=== PATIENT | female | born 1940 | race Caucasian/White ===

== ENCOUNTER → 2023-05-22 13:45 | Outpatient (REF) | payer MEDICARE, OTHER, SELFPAY | LOC: DHCBS MAIN 13:45 | PROVIDERS: ATTENDING PHYSICIAN Internal Medicine Cardiovascular Disease; FAMILY PHYSICIAN Internal Medicine Geriatric Medicine | DX: G45.9 Transient cerebral ischemic attack, unspecified (principal) | CPT/HCPCS: 93306 ==

== ENCOUNTER → 2023-08-18 12:43 | Outpatient (REF) | payer MEDICARE, OTHER, SELFPAY | LOC: WDC 12:43 | PROVIDERS: ATTENDING PHYSICIAN Obstetrics & Gynecology; FAMILY PHYSICIAN Internal Medicine Geriatric Medicine | DX: Z12.31 Encounter for screening mammogram for malignant neoplasm of breast (principal); Z78.0 Asymptomatic menopausal state | CPT/HCPCS: 77063; 77067; 77080 ==

== ENCOUNTER → 2023-10-16 12:12 | Outpatient (REF) | payer MEDICARE, OTHER, SELFPAY ==
[2023-10-16 12:47] LABS: % Basophils 1.1 % (0-2); % Eosinophils 4.6 % (0-6); % Immature Granulocytes 0.2 % (0-0.5); % Lymphocytes 25.2 % (20.5-51.1); % Monocytes 7.6 % (1.7-9.3); % Neutrophils 61.3 % (42.2-75.2); Absolute Basophils 0.1 10^3/uL (0-0.2); Absolute Eosinophils 0.2 10^3/uL (0-0.7); Absolute Lymphocytes 1.2 10^3/uL (1.2-3.4); Absolute Monocytes 0.4 10^3/uL (0.1-0.6); Absolute Neutrophils 2.9 10^3/uL (1.4-6.5); Hematocrit 37.8 % (37.0-47.0); Hemoglobin 12.5 g/dL (12.0-16.0); Mean Corp Hgb Conc. 33.1 g/dL (33.0-37.0); Mean Corpuscular Hgb 30.7 pg (27.0-31.0); Mean Corpuscular Volume 92.9 fL (81.0-99.0); Mean Platelet Volume 11.5 fL (7.4-10.4); Nucleated Red Blood Cells % 0 %; Platelet Count 158 10^3/uL (130-400); Red Blood Cell Count 4.07 10^6/uL (4.20-5.40); White Blood Cell Count 4.8 10^3/uL (4.8-10.8)
[2023-10-16 13:00] LABS: Urine Albumin 1+ (Neg - Trace); Urine Bilirubin Negative (Negative); Urine Character Slightly Cloudy (Clear); Urine Color Yellow; Urine Glucose Negative (Negative); Urine Ketone Negative (Negative); Urine Leukocyte 2+ (Negative); Urine Nitrite Negative (Negative); Urine Occult Blood Negative (Negative); Urine Urobilinogen Negative (Neg - 1+)
[2023-10-16 13:17] LABS: ALT (SGPT) 24 U/L (0-35); AST (SGOT) 38 U/L (14-36); Alkaline Phosphatase 81 U/L (38-126); Blood Urea Nitrogen 18 mg/dl (7-17); Calcium 9.8 mg/dl (8.4-10.2); Carbon Dioxide 27 mmol/L (22-30); Chloride 106 mmol/L (98-107); Glucose 91 mg/dl (70-99); HDL Cholesterol 54 mg/dl; LDL Cholesterol, Calculated 60 mg/dl; Potassium 4.6 mmol/L (3.5-5.1); Sodium 140 mmol/L (135-145); Total Cholesterol 155 mg/dl (50-199); Total Protein 6.4 g/dl (6.3-8.2); Triglyceride 209 mg/dl (10-149); Very Low Density Lipoprotein 41 mg/dl (0-30); eGFR 55.55
[2023-10-16 13:32] LABS: Vitamin D, 25-OH*** 65.8 ng/mL (30-80)
[2023-10-16 13:45] LABS: TSH 4.28 uIU/ml (0.47-4.68)
[2023-10-16 14:04] LABS: Glycohemoglobin (HgbA1c) 5.6 % (4.0-5.6)
[2023-10-16 15:10] LABS: Urine Bacteria Many (Negative); Urine Red Blood Cell 0-2 /HPF (0-2); Urine Squamous Cell >30 /LPF (Few); Urine Urothelial Cell 0-2 /LPF (FEW)
== END ==
LOC: REG 12:12
PROVIDERS: ATTENDING PHYSICIAN Internal Medicine Geriatric Medicine
DX: I10 Essential (primary) hypertension (principal); E03.9 Hypothyroidism, unspecified; E78.2 Mixed hyperlipidemia; I25.10 Atherosclerotic heart disease of native coronary artery without angina pectoris; R53.83 Other fatigue; J44.9 Chronic obstructive pulmonary disease, unspecified; K21.9 Gastro-esophageal reflux disease without esophagitis; I35.1 Nonrheumatic aortic (valve) insufficiency; I48.0 Paroxysmal atrial fibrillation; Z13.31 Encounter for screening for depression; E89.0 Postprocedural hypothyroidism; G45.9 Transient cerebral ischemic attack, unspecified; F03.A0 Unspecified dementia, mild, without behavioral disturbance, psychotic disturbance, mood disturbance, and anxiety; R60.9 Edema, unspecified; M54.50 Low back pain, unspecified; R73.03 Prediabetes; E55.9 Vitamin D deficiency, unspecified
CPT/HCPCS: 36415; 80053; 80061; 81003; 81015; 82306; 83036; 84439; 84443; 85025

== ENCOUNTER → 2024-01-18 15:24 | Outpatient (REF) | payer MEDICARE, OTHER, SELFPAY ==
[2024-01-18 16:25] LABS: % Basophils 0.7 % (0-2); % Eosinophils 2.5 % (0-6); % Immature Granulocytes 0.1 % (0-0.5); % Lymphocytes 29.4 % (20.5-51.1); % Monocytes 6.5 % (1.7-9.3); % Neutrophils 60.8 % (42.2-75.2); Absolute Basophils 0.1 10^3/uL (0-0.2); Absolute Eosinophils 0.2 10^3/uL (0-0.7); Absolute Lymphocytes 2.1 10^3/uL (1.2-3.4); Absolute Monocytes 0.5 10^3/uL (0.1-0.6); Absolute Neutrophils 4.3 10^3/uL (1.4-6.5); Hematocrit 40.5 % (37.0-47.0); Mean Corp Hgb Conc. 34.6 g/dL (33.0-37.0); Mean Corpuscular Hgb 31.6 pg (27.0-31.0); Mean Corpuscular Volume 91.4 fL (81.0-99.0); Mean Platelet Volume 12.5 fL (7.4-10.4); Nucleated Red Blood Cells % 0 %; Platelet Count 102 10^3/uL (130-400); Red Blood Cell Count 4.43 10^6/uL (4.20-5.40); Red Cell Dist. Width 13.1 % (11.5-14.5); White Blood Cell Count 7.1 10^3/uL (4.8-10.8)
[2024-01-18 16:30] LABS: Erythrocyte Sed Rate 21 mm/hour (0-20)
[2024-01-18 16:47] LABS: ALT (SGPT) 38 U/L (0-35); AST (SGOT) 43 U/L (14-36); Albumin 4.4 g/dl (3.5-5.0); Alkaline Phosphatase 83 U/L (38-126); Blood Urea Nitrogen 22 mg/dl (7-17); Calcium 10.5 mg/dl (8.4-10.2); Carbon Dioxide 27 mmol/L (22-30); Chloride 102 mmol/L (98-107); Glucose 87 mg/dl (70-99); Potassium 4.9 mmol/L (3.5-5.1); Sodium 144 mmol/L (135-145); Total Bilirubin 0.9 mg/dl (0.2-1.3); Total Protein 6.8 g/dl (6.3-8.2); eGFR 55.55
[2024-01-18 16:51] LABS: C-Reactive Protein < 5.00 mg/L (0.0-10.00)
[2024-01-18 16:57] LABS: Intact PTH 82.4 pg/ml (13.6-85.8)
[2024-01-18 17:08] LABS: Free T4 1.83 ng/dl (0.78-2.19)
[2024-01-18 17:22] LABS: TSH 4.88 uIU/ml (0.47-4.68)
[2024-01-18 17:41] LABS: Vitamin B12 956 pg/ml (239-931)
[2024-01-21 03:14] LABS: ANA, IgG Reflex to HEp-2 Detected (None Detected)
== END ==
LOC: RAD 15:24
PROVIDERS: ATTENDING PHYSICIAN Nurse Practitioner Primary Care; FAMILY PHYSICIAN Internal Medicine Geriatric Medicine
DX: G44.89 Other headache syndrome (principal); Z86.73 Personal history of transient ischemic attack (TIA), and cerebral infarction without residual deficits; I10 Essential (primary) hypertension; F03.B18 Unspecified dementia, moderate, with other behavioral disturbance
CPT/HCPCS: 36415; 70450; 80053; 82607; 83970; 84439; 84443; 85025; 85652; 86038; 86140; 86430; 86618

== ENCOUNTER → 2024-02-13 15:44 | Outpatient (REF) | payer MEDICARE, OTHER, SELFPAY | LOC: PAVMRI 15:44 | PROVIDERS: ATTENDING PHYSICIAN Nurse Practitioner Primary Care; FAMILY PHYSICIAN Internal Medicine Geriatric Medicine | DX: M51.16 Intervertebral disc disorders with radiculopathy, lumbar region (principal) | CPT/HCPCS: 72148 ==

== ENCOUNTER → 2024-03-13 09:40 | Outpatient (REF) | payer MEDICARE, OTHER, SELFPAY ==
[2024-03-13 12:14] LABS: Free T4 1.66 ng/dl (0.78-2.19)
[2024-03-13 12:28] LABS: TSH 0.12 uIU/ml (0.47-4.68); TSH Reflex To Free T4 0.12 uIU/ml (0.47-4.68)
== END ==
LOC: REG 09:40
PROVIDERS: ATTENDING PHYSICIAN Internal Medicine Geriatric Medicine
DX: E03.9 Hypothyroidism, unspecified (principal)
CPT/HCPCS: 36415; 84439; 84443

== ENCOUNTER → 2024-04-05 13:26 | Outpatient (REF) | payer MEDICARE, OTHER, SELFPAY | LOC: PAVMRI 13:26 | PROVIDERS: ATTENDING PHYSICIAN Nurse Practitioner Primary Care; FAMILY PHYSICIAN Internal Medicine Geriatric Medicine | DX: K86.2 Cyst of pancreas (principal) | CPT/HCPCS: 74183; A9575 ==

== ENCOUNTER 2024-04-30 15:40 | Emergency (ER) | payer MEDICARE, OTHER, SELFPAY ==
[2024-04-30 15:50] VITALS: BP 209/109
[2024-04-30 16:14] LABS: % Basophils 0.2 % (0-2); % Eosinophils 0.5 % (0-6); % Immature Granulocytes 0.2 % (0-0.5); % Lymphocytes 20.8 % (20.5-51.1); % Monocytes 7.9 % (1.7-9.3); % Neutrophils 70.4 % (42.2-75.2); Absolute Eosinophils 0.1 10^3/uL (0-0.7); Absolute Lymphocytes 1.9 10^3/uL (1.2-3.4); Absolute Monocytes 0.7 10^3/uL (0.1-0.6); Absolute Neutrophils 6.5 10^3/uL (1.4-6.5); Hematocrit 38.2 % (37.0-47.0); Hemoglobin 13.3 g/dL (12.0-16.0); Mean Corp Hgb Conc. 34.8 g/dL (33.0-37.0); Mean Corpuscular Hgb 31.1 pg (27.0-31.0); Mean Corpuscular Volume 89.5 fL (81.0-99.0); Mean Platelet Volume 11.7 fL (7.4-10.4); Nucleated Red Blood Cells % 0 %; Platelet Count 223 10^3/uL (130-400); Red Blood Cell Count 4.27 10^6/uL (4.20-5.40); Red Cell Dist. Width 13.6 % (11.5-14.5); White Blood Cell Count 9.3 10^3/uL (4.8-10.8)
[2024-04-30 16:32] LABS: ALT (SGPT) 26 U/L (0-35); AST (SGOT) 38 U/L (14-36); Albumin 4.7 g/dl (3.5-5.0); Alkaline Phosphatase 70 U/L (38-126); Blood Urea Nitrogen 24 mg/dl (7-17); Calcium 10.5 mg/dl (8.4-10.2); Carbon Dioxide 22 mmol/L (22-30); Chloride 106 mmol/L (98-107); Glucose 102 mg/dl (70-99); Potassium 3.9 mmol/L (3.5-5.1); Sodium 142 mmol/L (135-145); Total Bilirubin 1.2 mg/dl (0.2-1.3); Total Protein 7.2 g/dl (6.3-8.2); eGFR > 60.00
--- NOTE | 2024-04-30 19:28 | ED.GENMED ---
History of Present Illness
General
Chief Complaint: Facial Problem
Source: patient and family
Exam Limitations: none
Time Seen by Provider: 04/30/24 19:22
Nursing documentation reviewed up to this point in time: agreed with
History of Present Illness
History of Present Illness:
83-year-old female right-sided facial pain her support in her partial plate, no fevers no nausea no vomiting, does radiate up into her ear and her head on the right side apparently was seen at [place] recently for an unrelated shortness of breath
issue, details are not clear, does have a dentist, has not seen them recently,
Past History
Past History
ED Past Medical History: HTN, Hypercholesterolemia, Hypothyroidism and Other (Brain aneurysm, arthritis,Facial shingles)
ED Past Surgical History: Gynecological, Orthopedic and Other (brain surgery for aneurysm)
Social History
Tobacco: Non-smoker
Alcohol: Occasional
Drug: None
Personal:
Living: alone
Employment: Retired
Family History
Family History: Other
Review of Systems
Review of Systems
All Other Systems: Not applicable
Constitutional: Denies fever or fatigue
EENT: Reports other (Dental pain facial swelling can put her partial plate in)
Phy Exam
Physical Exam
Physical Exam:
Physical Exam
General: 83-year-old female looks uncomfortable
Neck: Overall poor dentition, swelling of the soft tissue around the right posterior molar no palpable abscess no trismus
Heart: s1/s2 regular rate and rhythm, no murmur. equal radial pulses.
Lungs: no acute respiratory distress. clear bilaterally
Neuro: alert and oriented. no focal neurological deficits
Skin: no rash
Psychiatric: cooperative
Extremities: no edema.
Course
Orders/Labs/Results
Orders:
Orders
04/30/24 15:56
CT Facial Bones W/ Iv Contrast Urgent
Comment:
Reason For Exam: pain
04/30/24 16:02
CMP [Comprehensive Metabolic Panel] Urgent
Complete Blood Count/With Diff Urgent
04/30/24 19:26
Oxycodone/Acetaminophen [Percocet 5/325] 1 tablet PO NOW STA
Penicillin V Potassium [Pen Vk] 500 mg PO NOW STA
04/30/24 20:00
Chlorhexidine Oral Rinse 0.12% [Peridex 0.12% Oral Rinse] 15 ml PO ONCE ONE
Abnormal Lab Results
04/30/24
16:02
MCH 31.1 H pg
(27.0-31.0)
MPV 11.7 H fL
(7.4-10.4)
Absolute Monos (auto) 0.7 H 10^3/uL
(0.1-0.6)
BUN 24 H mg/dl
(7-17)
Glucose 102 H mg/dl
(70-99)
Calcium 10.5 H mg/dl
(8.4-10.2)
AST 38 H U/L
(14-36)
04/30/24 16:02
04/30/24 16:02
Vital Signs
Initial and Last Documented VS:
Initial Vital Signs
Temp Pulse Resp BP Pulse Ox
97.8 F 88 18 209/109 98
04/30/24 15:50 04/30/24 15:50 04/30/24 15:50 04/30/24 15:50 04/30/24 15:50
Last Documented Vital Signs
Temp Pulse Resp BP Pulse Ox
97.8 F 88 18 209/109 98
04/30/24 15:50 04/30/24 15:50 04/30/24 15:50 04/30/24 15:50 04/30/24 15:50
MDM/Problems Addressed
Differential Diagnosis Includes:
Dental infection, caries, periodontal disease, no signs of deep space infection by history physical and imaging normal white count trigeminal neuralgia
MDM/Problems Addressed:
Face and dental pain
Chronic conditions affecting care: HTN
Acute Exacerbation and/or Progression of Chronic Illness: HTN
*Radiology
Radiology exam reviewed: radiology read reviewed
*Pulse Oximetry
Patient hypoxic: no
*Critical Care Note
Total Time (30-74mins, 75-104mins- exclusive of procedures): Not Applicable
Update Note
Update Note:
Update suspect combination of periodontal disease, and dental caries, will try Peridex antibiotics analgesics states it hurts to put in her partial plate I have encouraged her to follow-up with her dentist
Update patient appears comfortable labs and CT reviewed with patient encouraged her to call her dentist in the morning
ED Attending Note
-
Portions of this chart may have been created with voice recognition software.� Occasional wrong word or��sound alike� substitutions may have occurred due to the inherent limitations of voice recognition software.
Discharge Plan
Departure
Patient Disposition: Home (Routine Discharge)
Date of Disposition: 04/30/24
Time of Disposition: 20:52
Patient with high blood pressure during this ER visit?: Yes
Condition: Good
Discharge Problem:
Pain, dental
Instructions: Toothache
Prescriptions:
New
penicillin V potassium 500 mg tablet
500 mg PO Q6H 10 Days Qty: 40 0RF
oxycodone-acetaminophen [Percocet] 5-325 mg tablet
1 tab PO Q6HPRN PRN (Reason: pain) Qty: 10 0RF
No Action
levothyroxine 75 mcg Tablet
75 mcg PO DAILY
metoprolol succinate 50 mg Tablet Extended Release 24 Hr
50 mg PO DAILY
multivitamin Tablet
1 tab PO DAILY
cyanocobalamin (vitamin B-12) [Vitamin B-12] 1,000 mcg Tablet
1,000 mcg PO DAILY
melatonin 3 mg Tablet
3 mg PO HS
telmisartan 80 mg tablet
80 mg PO DAILY
omeprazole 20 mg capsule,delayed release(DR/EC)
20 mg PO DAILY
furosemide 20 mg tablet
20 mg PO DAILY
estradiol 0.01 % (0.1 mg/gram) cream
1 g VAGINAL .2X WEEKLY
cholecalciferol (vitamin D3) [Vitamin D3] 50 mcg (2,000 unit) Tablet
50 mcg PO DAILY
acetaminophen 500 mg Tablet
500 mg PO BID
[place]-3 Fish Oil 300-1,000 mg Capsule
1 cap PO DAILY
clopidogrel 75 mg Tablet
75 mg PO DAILY Qty: 21 0RF
aspirin 81 mg capsule
81 mg PO DAILY Qty: 30 0RF
atorvastatin 80 mg tablet
80 mg PO HS Qty: 30 0RF
amlodipine [Norvasc] 2.5 mg tablet
2.5 mg PO DAILY Qty: 30 0RF
Referrals:
Patient,Refused [Family Provider] -
Activity Restrictions/Additional Instructions:
Follow-up with your family doctor and dentist call tomorrow
Interventions
Interventions:
*Risk Screen - Suicide Last Done: 04/30/24 15:50
*General Assessment Last Done: 04/30/24 15:50
*Neglect/Abuse Screening Last Done: 04/30/24 15:50
ED- Fall Risk Assessment Last Done: 04/30/24 19:42
*ED COVID-19 Vaccine History Last Done: 04/30/24 15:50
ED- Neurological Assessment Last Done: 04/30/24 19:42
ED-Skin Assessment Last Done: 04/30/24 19:43
Discharge Date and Time
Print Language: BENGALI
[2024-04-30] MEDS: PEN VK 500 MG PO (19:34)
[2024-04-30] MEDS: PERCOCET 5/325 1 TABLET PO (19:35)
[2024-04-30] MEDS: PERIDEX 0.12% ORAL RINSE 15 ML PO (19:56)
[2024-04-30 20:00] VITALS: BP 178/87
== END 2024-04-30 21:18 | disposition home or self-care (01) ==
LOC: EMR 15:40
PROVIDERS: Nurse Practitioner; EMERGENCY PHYSICIAN Emergency Medicine
DX: K08.89 Other specified disorders of teeth and supporting structures (principal); I10 Essential (primary) hypertension; E78.00 Pure hypercholesterolemia, unspecified; E03.9 Hypothyroidism, unspecified; M19.90 Unspecified osteoarthritis, unspecified site; B02.9 Zoster without complications; Z79.82 Long term (current) use of aspirin
CPT/HCPCS: 99284; 70487; 80053; 85025; Q9967

== ENCOUNTER → 2024-10-14 13:18 | Outpatient (REF) | payer MEDICARE, OTHER, SELFPAY ==
[2024-10-14 14:21] LABS: % Basophils 0.4 % (0-2); % Eosinophils 1.9 % (0-6); % Immature Granulocytes 0.1 % (0-0.5); % Lymphocytes 21.1 % (20.5-51.1); % Monocytes 6.2 % (1.7-9.3); % Neutrophils 70.3 % (42.2-75.2); Absolute Eosinophils 0.1 10^3/uL (0-0.7); Absolute Lymphocytes 1.4 10^3/uL (1.2-3.4); Absolute Monocytes 0.4 10^3/uL (0.1-0.6); Absolute Neutrophils 4.8 10^3/uL (1.4-6.5); Hematocrit 39.4 % (37.0-47.0); Hemoglobin 13.4 g/dL (12.0-16.0); Mean Corpuscular Hgb 31.3 pg (27.0-31.0); Mean Corpuscular Volume 92.1 fL (81.0-99.0); Mean Platelet Volume 11.6 fL (7.4-10.4); Nucleated Red Blood Cells % 0 %; Platelet Count 181 10^3/uL (130-400); Red Blood Cell Count 4.28 10^6/uL (4.20-5.40); Red Cell Dist. Width 13.6 % (11.5-14.5); White Blood Cell Count 6.8 10^3/uL (4.8-10.8)
[2024-10-14 14:25] LABS: Urine Albumin 3+ (Neg - Trace); Urine Bilirubin Negative (Negative); Urine Character Cloudy (Clear); Urine Color Yellow; Urine Glucose Negative (Negative); Urine Ketone Negative (Negative); Urine Leukocyte 3+ (Negative); Urine Nitrite Negative (Negative); Urine Occult Blood 2+ (Negative); Urine Specific Gravity 1.015 (<1.030); Urine Urobilinogen 1+ (Neg - 1+); Urine pH 6.5 (5.0-9.0)
[2024-10-14 14:49] LABS: Urine Squamous Cell >30 /LPF (Few)
[2024-10-14 14:53] LABS: Urine Bacteria Many (Negative)
[2024-10-14 15:00] LABS: ALT (SGPT) 24 U/L (0-35); AST (SGOT) 38 U/L (14-36); Albumin 4.6 g/dl (3.5-5.0); Alkaline Phosphatase 67 U/L (38-126); Blood Urea Nitrogen 22 mg/dl (7-17); Calcium 9.7 mg/dl (8.4-10.2); Carbon Dioxide 24 mmol/L (22-30); Chloride 110 mmol/L (98-107); Glucose 95 mg/dl (70-99); HDL Cholesterol 65 mg/dl; LDL Cholesterol, Calculated 74 mg/dl; Sodium 144 mmol/L (135-145); Total Bilirubin 1.2 mg/dl (0.2-1.3); Total Cholesterol 164 mg/dl (50-199); Total Protein 7.1 g/dl (6.3-8.2); Triglyceride 126 mg/dl (10-149); Very Low Density Lipoprotein 25 mg/dl (0-30); eGFR > 60.00
[2024-10-14 15:06] LABS: Urine White Cell 16-20 /HPF (0-5)
[2024-10-14 15:09] LABS: Free T4 1.99 ng/dl (0.78-2.19); Vitamin D, 25-OH*** 70.8 ng/mL (30-80)
[2024-10-14 15:23] LABS: TSH 5.57 uIU/ml (0.47-4.68)
== END ==
LOC: REG 13:18
PROVIDERS: ATTENDING PHYSICIAN Internal Medicine Geriatric Medicine
DX: J44.9 Chronic obstructive pulmonary disease, unspecified (principal); I48.0 Paroxysmal atrial fibrillation; E03.9 Hypothyroidism, unspecified; I10 Essential (primary) hypertension; E78.2 Mixed hyperlipidemia; I25.10 Atherosclerotic heart disease of native coronary artery without angina pectoris; I35.1 Nonrheumatic aortic (valve) insufficiency; F03.A0 Unspecified dementia, mild, without behavioral disturbance, psychotic disturbance, mood disturbance, and anxiety; F41.9 Anxiety disorder, unspecified; K21.9 Gastro-esophageal reflux disease without esophagitis; Z13.89 Encounter for screening for other disorder; F43.23 Adjustment disorder with mixed anxiety and depressed mood; M54.50 Low back pain, unspecified; R53.83 Other fatigue; E55.9 Vitamin D deficiency, unspecified
CPT/HCPCS: 36415; 80053; 80061; 81003; 81015; 82306; 84439; 84443; 85025

== ENCOUNTER 2025-01-20 15:06 | Observation (INO) | payer MEDICARE, OTHER, SELFPAY ==
[2025-01-20] VITALS (17 sets, daily range): BP systolic 151–208; BP diastolic 43–135
[2025-01-20 11:42] LABS: Glucose - Point of Care 97 mg/dl (70-99)
[2025-01-20 11:48] LABS: Hematocrit 39.4 % (37.0-47.0); Hemoglobin 13.6 g/dL (12.0-16.0); Mean Corp Hgb Conc. 34.5 g/dL (33.0-37.0); Mean Corpuscular Volume 89.1 fL (81.0-99.0); Nucleated Red Blood Cells % 0 %; Platelet Count 166 10^3/uL (130-400); Red Cell Dist. Width 13.0 % (11.5-14.5)
--- NOTE | 2025-01-20 11:53 | ED.GENMED ---
History of Present Illness
General
Chief Complaint: Breathing Problem
Source: patient
Exam Limitations: none
Time Seen by Provider: 01/20/25 11:49
History of Present Illness
History of Present Illness:
See MDM
Past History
Past History
ED Past Medical History: HTN, Hypercholesterolemia, Hypothyroidism and Other (Brain aneurysm, arthritis,Facial shingles)
ED Past Surgical History: Gynecological, Orthopedic and Other (brain surgery for aneurysm)
Social History
Tobacco: Non-smoker
Alcohol: Occasional
Drug: None
Personal:
Living: alone
Employment: Retired
Family History
Family History: Other
Phy Exam
Physical Exam
Physical Exam:
See MDM
Scores
Heart Failure Risk
Heart Failure Risk Score: Not Applicable
Course
Orders/Labs/Results
Orders:
Orders
01/20/25 11:40
Electrocardiogram (*1) Urgent
Reason for Study: Chest Pain
Cardiac Monitoring- Treatment ONCE
EKG- Treatment ONCE
IV Insert/Care/Rem.- Treatment PRN
O2 Therapy [RESP] Urgent
Titrate/Wean O2 to maintain O2 sat greater than (%): 90
Special Instructions: Maintain sats >/=90%
Pulse Ox/spot Check [RESP] Urgent
Quantity: 1
Special Instructions: ON ROOM AIR
01/20/25 11:41
Acetaminophen Urgent
Comment: ADD ON
Alcohol Urgent
Complete Blood Count/With Diff Urgent
Comprehensive Metabolic Panel Urgent
Salicylate Urgent
Comment: ADD ON
Troponin I Urgent
Portable Chest Xray [CR Chest Portable - 1 View] Stat
Comment:
Reason For Exam: SOB
Reason Study Needs to be Portable: Patient Unstable
01/20/25 11:57
CT Head W/o Iv Contrast Urgent
Comment:
Reason For Exam: altered
01/20/25 11:58
Midazolam HCl [Versed] 1 mg IV NOW STA
01/20/25 12:02
Midazolam HCl [Versed] 0.5 mg IV NOW STA
01/20/25 12:12
Add On- LAB Urgent
Tests Added?: acetominephine alcohol salicylate
Abnormal Lab Results
01/20/25
11:41
MPV 11.3 H fL
(7.4-10.4)
Chloride 108 H mmol/L
(98-107)
Salicylates < 1.0 L mg/dl
(2.0-20.0)
01/20/25 11:41
01/20/25 11:41
Vital Signs
Initial and Last Documented VS:
Initial Vital Signs
Pulse Resp
60 25
01/20/25 11:41 01/20/25 11:41
Last Documented Vital Signs
Pulse Resp BP Pulse Ox
44 14 195/77 96
01/20/25 12:45 01/20/25 12:45 01/20/25 12:40 01/20/25 12:45
MDM/Problems Addressed
Differential Diagnosis Includes:
Note:
CHIEF COMPLAINT(S)
Jaw pain and difficulty breathing.
HISTORY OF PRESENT ILLNESS
The patient is a 84-year-old female with a history of possible heart disease presenting with jaw pain and difficulty breathing. According to the patients family, the jaw pain started earlier today, and it has been severe enough to cause the patient
to cry. The patient expressed a desire to visit a doctor due to her discomfort. She has a twice-weekly caregiver, who has not identified any significant history of stents or known heart conditions. The patient also experiences generalized weakness
as demonstrated by her difficulty lifting her legs and squeezing with her hands. Additionally, the patient is reportedly experiencing distress and has expressed a desire for the Lord to take her, which may suggest underlying psychological concerns
or a response to pain. The patient denies any recent medication overdose or intentional harm. She admits to drinking coffee, but has not consumed food today. Despite the difficulty in breathing earlier, she is now able to take deep breaths.
Pt states she is DNI but ok with Chest compressions
I was brought into the room immediately due to her significant shortness of breath and altered mental status. However, throughout my HPI, patient answering questions more appropriately. Her shortness of breath appears to be transmissible through
her neck appear to be self-inflicted. She is able to communicate but then will intermittently complain of shortness of breath and appeared to doze off. Her exam is very distractible
SOCIAL DETERMINANTS AFFECTING HEALTH
The patient�s sister mentioned that the patient frequently expresses a wish for the Lord to take her, which may indicate depression or resignation due to her health status.
PHYSICAL EXAM
General: Alert, intermittently complaining of shortness of breath and jaw pain
Skin: Warm, dry.
Head: Normocephalic, atraumatic
Neck: Appears supple, trachea midline.
Eyes, Ears, Nose, Mouth, and Throat: Oral mucosa moist.
Cardiovascular: No signs of cyanosis
Respiratory: Respirations are non-labored. Lungs clear
Abdomen: Non-distended
Musculoskeletal: No deformities
Neurological: No focal neurological deficit observed.
Psychiatric: Anxious
PROBLEM LIST
Acute: Jaw pain, difficulty breathing, potential depression.
PLAN
- Obtain an electrocardiogram (ECG) to evaluate cardiac function.
- Perform a stat chest X-ray to assess respiratory status.
- Monitor vital signs closely for any changes in condition.
- Ensure psychological evaluation to address patients statements about wishing for .
- Clarify and respect patients wishes regarding resuscitation and mechanical ventilation. Patient requests CPR if necessary but declines mechanical ventilation.
- Multidisciplinary approach involving cardiology and psychiatry if initial evaluations indicate underlying issues corresponding to these specialties.
DIFFERENTIAL DIAGNOSIS
The differential diagnosis includes, in no particular order and is not limited to:
1. Myocardial infarction
2. Angina pectoris
3. Anxiety or panic attack
4. Chronic Obstructive Pulmonary Disease exacerbation
5. Asthma
6. Stroke
7. Gastroesophageal Reflux Disease
8. Atypical pneumonia
9. Depression or other psychiatric disorder
10. Medication side effects or reaction
SUMMARY OF ENCOUNTER
The patient, a [id number] female, presented to the emergency department with complaints of jaw pain and difficulty breathing. Given her age and the symptoms, including potential underlying heart conditions, there was concern for significant
pathology such as myocardial infarction. Despite the improvement in breathing after arrival, due to the persistent jaw pain and the potential for underlying psychosomatic factors, the decision for further monitoring and evaluation was made. A
detailed discussion took place with the patient and her sister about the possibility of psychosomatic contributions to her symptoms, though other pathologies could not be entirely ruled out.
DISPOSITION
Admit to the hospital service for further evaluation and treatment.
ASSESSMENT
The patient exhibits symptoms suggestive of acute coronary syndrome versus other serious causes of jaw pain and shortness of breath such as anxiety, depression, or other psychosomatic issues.
PLAN
- Admit the patient to the hospital service for continuous monitoring and further evaluation.
- Consider cardiac evaluation due to possible heart disease and present symptoms.
- Address psychological concerns appropriately given the patients expressed psychosomatic symptoms.
MEDICAL DECISION MAKING
-Complexity of Data Reviewed: Chronic conditions affecting care include possible heart disease. The differential diagnosis includes myocardial infarction, angina pectoris, anxiety or panic attack, COPD exacerbation, asthma, stroke, GERD, atypical
pneumonia, depression, and other psychiatric disorders, as well as medication side effects or reactions.
-Data:
Category 1
- Tests and labs considering the context are necessary to evaluate cardiac function and respiratory status, though specifics were not explicitly mentioned.
Category 2
- Independent historian: Consultation involving the patients sister provided supplemental information contributing to the decision for admission.
-Risk:
Given the age and symptom profile, the risk of complications from myocardial infarction or other significant cardiac events warrants hospitalization for close monitoring and further diagnostic work-up.
*Pulse Oximetry
SaO2: 99
Patient hypoxic: no
*Critical Care Note
Total Time (30-74mins, 75-104mins- exclusive of procedures): Not Applicable
ED Attending Note
-
Portions of this chart may have been created with voice recognition software.� Occasional wrong word or��sound alike� substitutions may have occurred due to the inherent limitations of voice recognition software.
Discharge Plan
Departure
Patient Disposition: Admit
Date of Disposition: 01/20/25
Time of Disposition: 13:55
Admit to: Telemetry
Presentation/result/management discussed w/ accepting MD/DO: Hospitalist
Discharge Problem:
Acute dyspnea, Jaw pain
Prescriptions:
No Action
levothyroxine 75 mcg Tablet
75 mcg PO DAILY
metoprolol succinate 50 mg Tablet Extended Release 24 Hr
50 mg PO DAILY
multivitamin Tablet
1 tab PO DAILY
cyanocobalamin (vitamin B-12) [Vitamin B-12] 1,000 mcg Tablet
1,000 mcg PO DAILY
melatonin 3 mg Tablet
3 mg PO HS
telmisartan 80 mg tablet
80 mg PO DAILY
omeprazole 20 mg capsule,delayed release(DR/EC)
20 mg PO DAILY
furosemide 20 mg tablet
20 mg PO DAILY
estradiol 0.01 % (0.1 mg/gram) cream
1 g VAGINAL .2X WEEKLY
cholecalciferol (vitamin D3) [Vitamin D3] 50 mcg (2,000 unit) Tablet
50 mcg PO DAILY
acetaminophen 500 mg Tablet
500 mg PO BID
[place]-3 Fish Oil 300-1,000 mg Capsule
1 cap PO DAILY
clopidogrel 75 mg Tablet
75 mg PO DAILY Qty: 21 0RF
aspirin 81 mg capsule
81 mg PO DAILY Qty: 30 0RF
atorvastatin 80 mg tablet
80 mg PO HS Qty: 30 0RF
amlodipine [Norvasc] 2.5 mg tablet
2.5 mg PO DAILY Qty: 30 0RF
penicillin V potassium 500 mg tablet
500 mg PO Q6H 10 Days Qty: 40 0RF
oxycodone-acetaminophen [Percocet] 5-325 mg tablet
1 tab PO Q6HPRN PRN (Reason: pain) Qty: 10 0RF
Referrals:
UNKNOWN - PT NOT,INTERVIEWE [Family Provider]
Interventions
Interventions:
*Risk Screen - Suicide Last Done: 01/20/25 11:58
*Neglect/Abuse Screening Last Done: 01/20/25 11:58
*ED- Fall Risk Assessment Last Done: 01/20/25 11:58
*ED COVID-19 Vaccine History Last Done: 01/20/25 11:58
ED- Cardiac Assessment Last Done: 01/20/25 11:59
ED- Pulmonary Assessment Last Done: 01/20/25 11:59
Discharge Date and Time
Print Language: ARGENTINE
[2025-01-20] MEDS: VERSED 0.5 MG IV (12:03)
[2025-01-20 12:11] LABS: ALT (SGPT) 23 U/L (0-35); AST (SGOT) 31 U/L (14-36); Albumin 4.3 g/dl (3.5-5.0); Alkaline Phosphatase 82 U/L (38-126); Blood Urea Nitrogen 17 mg/dl (7-17); Calcium 9.8 mg/dl (8.4-10.2); Carbon Dioxide 27 mmol/L (22-30); Chloride 108 mmol/L (98-107); Glucose 98 mg/dl (70-99); Potassium 3.7 mmol/L (3.5-5.1); Sodium 142 mmol/L (135-145); Total Protein 6.6 g/dl (6.3-8.2); eGFR > 60.00
[2025-01-20 12:14] LABS: Troponin I < 0.012 ng/ml
[2025-01-20 12:28] LABS: Acetaminophen 16 ug/ml (10-30); Salicylate < 1.0 mg/dl (2.0-20.0)
--- NOTE | 2025-01-20 13:52 | HPS.HSE ---
Family Physician
-
Family Physician: INTERVIEWE UNKNOWN - PT NOT
Chief Complaint
-
Jaw Pain and Shortness of Breath
History of Present Illness
Patient is an 84 y/o female past medical history of CAD, A-fib, HTN, Hypothyroidism, Subarachnoid Hemorrhage, Dementia and Anxiety/Panic Disorder who presents with jaw pain and shortness of breath. Patient was brought in by her sister for
complaints of jaw pain. ED staff notes patient was very tachypneic. She was given Versed and upon my evaluation patient is slightly sedated. She easily opened her eyes but would quickly start hyperventilating during my evaluation. She repeatedly
stated that she didn't feel good, but did not express a specific complaints.
Medical History
Past Medical History
Past Medical History: Reports Other
Additional Past Medical History:
Nonobstructive Coronary Artery Disease
Paroxysmal Atrial Fibrillation (Remote per outpatient chart)
Essential Hypertension
Hypercholesterolemia
COPD
Hypothyroidism
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
Moderate Dementia
Anxiety / Panic Disorder
Osteoarthritis
Past Surgical History: Reports Other
Additional Past Surgical History:
Right Shoulder Replacement
Wrist Surgery
Left Knee Replacement
Hysterectomy
Bladder Surgery
Partial Thyroidectomy
Social History
Unable to obtain full social history at this time due to: Dementia
Tobacco: Non-smoker
Alcohol: Occasional
Drug: None
Family History
Family History: Not pertinent
Allergies / Home Medications
Allergies reflects when Allergies were last updated in [facility].
Home Medications with original date entered in [facility]
Allergy/Medication List:
Allergies
Allergy/AdvReac Type Severity Reaction Status Date / Time
No Known Allergies Allergy Verified 11/13/22 15:51
Home Medications
levothyroxine 75 mcg tablet 75 mcg PO DAILY Thyroid 04/08/22
furosemide 20 mg tablet 20 mg PO DAILY Fluid Retention/Swelling 11/13/22
omega-3s 300 xq-mum-qfk-other [id number] oil 1,000 mg capsule ([place]-3 Fish Oil) 1 cap PO DAILY Supplement 11/13/22
telmisartan 80 mg tablet 80 mg PO DAILY Blood Pressure 11/13/22
amlodipine 2.5 mg tablet (Norvasc) 2.5 mg PO DAILY Blood Pressure 01/20/25
aspirin 81 mg tablet,delayed release 81 mg PO DAILY Blood Clot Prevention/Tx 01/20/25
atorvastatin 80 mg tablet 80 mg PO HS High Cholesterol 01/20/25
donepezil 10 mg tablet 10 mg PO HS Neurological Condition 01/20/25
pantoprazole 40 mg tablet,delayed release (Protonix) 40 mg PO DAILY Gastrointestinal Issue 01/20/25
sertraline 50 mg tablet 50 mg PO DAILY Mental Health 01/20/25
Review of Systems
-
Unable to obtain full review of systems at this time due to: Dementia
Physical Exam
Vital Signs
Vital Signs
Pulse Resp BP Pulse Ox
44 14 195/77 96
01/20/25 12:45 01/20/25 12:45 01/20/25 12:40 01/20/25 12:45
Physical Exam
General: Well Developed and Well Nourished
HEENT: Anicteric and Moist mucous membranes
Respiratory: Clear and Non Labored Respirations
Cardiac: S1/S2, Regular Rhythm and Bradycardia (Heart rate in the 40s while resting but came up to the 60s when awake)
GI: Soft, Non Tender and Non Distended
Rectal: Deferred by Provider
Musculoskeletal: No Clubbing, No Cyanosis and No Edema
Skin: Warm and Dry
Neuro: Other (Lethargic but easily arousable but unable to follow purposeful commands)
Psych: Calm
Laboratory Results
-
01/20/25 11:41
01/20/25 11:41
Laboratory Results
Total Bilirubin 0.9 mg/dl (0.2-1.3) 01/20/25 11:41
AST 31 U/L (14-36) 01/20/25 11:41
ALT 23 U/L (0-35) 01/20/25 11:41
Alkaline Phosphatase 82 U/L (38-126) 01/20/25 11:41
Troponin I < 0.012 ng/ml 01/20/25 11:41
Data Reviewed
-
Lab Data: Labs Reviewed by me
Impression/Plan
-
Jaw Pain / Shortness of Breath / Hyperventilation, suspect related to Anxiety / Panic Attack
-Consult Psych
-Add haldo prn - Would attempt to avoid benzos given her underlying dementia
-Continue sertraline
Uncontrolled Hypertension, suspect component of anxiety and missed medications this morning
-Give dose of hydralazine now
-Continue amlodipine and telmisartan
Non-Obstructive Coronary Artery Disease
-Continue aspirin
-Continue atorvastatin
Hypothyroidism
-Continue levothyroxine
Moderate Dementia with Behavioral Disturbance
-Continue donepezil
DVT Proph: SCDs
Code Status: Do Not Intubate - OK for Chest Compressions
[2025-01-20] MEDS: APRESOLINE 10 MG IV (15:11)
[2025-01-20] MEDS: NORVASC 2.5 MG PO (15:15)
--- NOTE | 2025-01-20 15:20 | W.PN.UPDATE ---
Addendum entered and electronically signed by Jesus Urias MD 01/20/25 17:11:
Added on ESR and CRP.
Addendum entered and electronically signed by Jesus Urias MD 01/20/25 17:08:
Unclear if jaw pain is secondary trigeminal neuralgia. Temporal arteritis unlikely given location. Psychosomatic pain is most likely as patient has periods of time when not complaining of pain, and given multiple overall symptoms. Dental problem is
not possible because patient has no teeth. Would continue to observe and see if pain improves with antipsychotic.
Original Note:
Update Note
Progress Note Update
This is an addendum to H&P written by Liv Lux on 01/20/2025. �Patient seen and examined independently with PA.
84-year-old female past medical history of cerebral aneurysm status post stent, subarachnoid hemorrhage, CAD, hypertension, hyperlipidemia, dementia with behavioral disturbances, anxiety/panic attacks, hypothyroidism, GERD, presenting with jaw pain
and difficulty breathing starting today. �Also complaining of headache. �Also generalized weakness. �Also complained of tingling of the left foot. �Patient also expressing desire for the Lord to take her.
Patient was noted to be short of breath with altered mental status. �She was answering questions appropriately. �She was able to communicate but will intermittently complain of shortness of breath and dozed off and was distractible.
On my examination she was screaming out in pain due to right cheek pain and kept repeating that she did not have teeth there.
She was given Versed and became sedated.
Vital signs show blood pressure up to 200 systolic with bradycardia of in the 40s. �EKG showed sinus rhythm with PACs
Labs unremarkable.
Salicylates negative. �Tylenol level 16. �Alcohol level negative.
Chest x-ray shows no acute pulmonary process.
Patient with what appears to be panic attack in the setting of dementia with history of behavioral disturbances secondary to prior subarachnoid hemorrhage associated with hypertensive urgency. �Check CT head. �Will likely benefit from antipsychotic
such as haldol. �Psychiatry consulted.
Uncontrolled hypertension likely secondary to panic attack. �As needed hydralazine.
Trend troponins to rule out cardiac etiology.
--- NOTE | 2025-01-20 16:15 | CS.PSYCHR ---
Consult Summary - Psychiatry
-
pt seen by me, consulted for agitation/anxiety
84 yo woman brought to ED by sister due to worsening complaint of shortness of breath and jaw pain. Has history of dementia and repeated presentations similar to this with general sense that these are panic attack.
Most of history taken from chart and phone call to son.
No prior psychiatric history prior to 2019 when she had brain bleed; since then has become more confused at times, more easily agitated. Lives alone in [facility], son is trying to get her into assisted living there but pt resistent (that is
her premorbid personality style.) sister supportive but pt does not listen to anyone when she is like this, cannot be comforted, spends hours in ED and then sent home.
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
On exam patient is intitally conversant until I introduced myself as a psychiatrist; demands to be seen by a real doctor (has already seen two other practioners here, reminded I am a real doctor as well) begins holding side of head and screaming in
pain. No signs of shortness of breath, able to state she is 84 years old, demands I call her son (gives me his name) and demands I find her sister. Unwilling to answer most other questions.
Impression: Pain at side of head, need to rule out underlying cause (pt denies ear pain or hearing loss) r/o arteritis or neuralgia
Plan: for agitation would try low dose antipsychotic, seroquel 25 mg hs with repeat x 1 in one hour if ineffective. Reviewed risks with son, who wanted to be sure Dr. alexandra early with his (contacted by [facility], ok)
[2025-01-20 18:23] LABS: Troponin I 0.014 ng/ml
[2025-01-20] MEDS: TYLENOL 650 MG PO (18:48)
[2025-01-20 21:01] LABS: C-Reactive Protein < 5.00 mg/L (0.0-10.00)
--- NOTE | 2025-01-20 21:02 | PTCARENOTE ---
Oral care was not performed on Pt because she wasn't up to it.
[2025-01-20] MEDS: LIPITOR 80 MG PO (21:09)
[2025-01-20] MEDS: ARICEPT 10 MG PO (21:09)
[2025-01-21 00:20] LABS: Troponin I 0.018 ng/ml
[2025-01-21 03:00] VITALS: BP 150/79
[2025-01-21 07:17] VITALS: BP 150/71
[2025-01-21] MEDS: COZAAR 100 MG PO (08:34)
[2025-01-21] MEDS: PROTONIX 40 MG PO (08:34)
[2025-01-21] MEDS: NORVASC 2.5 MG PO (08:34)
[2025-01-21] MEDS: ZOLOFT 50 MG PO (08:34)
[2025-01-21] MEDS: LASIX 20 MG PO (08:34)
[2025-01-21] MEDS: SYNTHROID 75 MCG PO (08:34)
[2025-01-21] MEDS: ASPIR LOW (ENTERIC COATED) 81 MG PO (08:34)
--- NOTE | 2025-01-21 09:06 | PTCARENOTE ---
Pt agitated this morning about being in the hospital. Says her son forced her to be here and she is going home today. Able to calm pt down and coerce back into room. Pt spoke to son on phone which seemed to help. Pt says that sister is coming
today and she is leaving w/ her.
--- NOTE | 2025-01-21 09:15 | W.PN.UPDATE ---
Addendum entered and electronically signed by Sai Mar MD 01/21/25 15:52:
Met with patient's sister at bedside. She stated that patient was holding onto her right side of the face yesterday as her jaw was hurting. She had difficult time getting out of the car but patient started yelling saying that she feels fine and
wants to go home. We discussed about setting up a separate pillbox for thyroid medicine patient states that she takes them in the morning with the coffee and takes the rest of the medicines later. Son sets of whole month of pillbox for her. She
is demanding to be discharged and very restless and animated when she describes how she is feeling well.
Sister also feels that the best thing that she gets home as soon as possible to avoid an argument.
Original Note:
Update Note
Progress Note Update
Seen and examined the patient with the resident. Agree with assessment and plan except for changes in my note
84-year-old female jaw pain
Spoke to patient's son who is in [place] he stated that patient goes through the cycle of symptoms at nighttime every couple months and is brought to ER and nothing found on testing and discharge. He thinks that she needs to go to an assisted living
place but she has been very resistant.
Patient does not know exactly what happened she thinks she had some jaw pain unclear. Per patient was perfectly fine when I saw her today and wanted to leave. Stated that she ambulated and is feeling fine.
Head CT-no acute changes. Small chronic left temporal lobe infarcts
EKG-sinus rhythm, left axis deviation
Awake alert oriented
Neuroexam is stable
Right eye vision loss
Left eye constricted pupil but reactive to light
No facial droop
Cardiovascular system S1-S2 appreciated
Chest clear to auscultation
# Jaw pain/shortness of breath/hyperventilation.Troponin 3 sets negative
Psychiatry evaluation requested for panic attack
Seroquel 12.5 mg at bedtime started
Troponin 3 sets negative, EKG without any ischemia. CT of the head without any acute changes
Lung exam normal. Saturations normal on room air
Sed rate and CRP unremarkable
# Poorly controlled hypertension.Continue Amlodipine and Telmisartan follow blood pressures-probably was not taking medicines as she is supposed to. Son concurs this
# Coronary zhyviwk-ocbabzmwhjrwos-fwovmjgm Aspirin and Statin
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 Increase Synthroid to 88 mcg. Son also questions compliance. Since her TSH has been slowly climbing since October
we have decided to increase the dose. Discussed about separate pillbox for levothyroxine so she takes it earlier in the morning.
# Hyperlipidemia will continue Statin
# History of stroke-continue Aspirin and Statin
# History of stenting of the left intracranial carotid artery for cerebral aneurysm 2018
# Moderate dementia with behavioral disturbance-continue Donepezil, Sertraline
# GERD-continue PPI
# DVT prophylaxis-SCDs
# CODE STATUS-DNI
Discussed with nursing
I will also talk to the patient's sister to see what she observed last night
Anxious for Discharge today. If she has more symptoms or symptoms bring her back to the hospital
I agree that she may be better at an assisted living facility which I discussed with the patient's son also.
Part of this note was created using voice recognition system. Occasional wrong word or��sound alike� substitutions may have inadvertently occurred due to the inherent limitations of voice recognition software. If noted kindly bring it to my
attention for correction.
[2025-01-21 11:01] VITALS: BP 147/78
[2025-01-21 12:18] VITALS: PULSE 65; O2SAT 98
--- NOTE | 2025-01-21 13:09 | W.PN.UPDATE ---
Update Note
Progress Note Update
Pt seen for followup. Much calmer, smiling, says her pain is gone. Blames son for her being here, says he got her sister to take her. I told her how much better she looks; she agrees and says she is ready to go home, Has spoken with son, angry with
him 'but he's really a good mariela.' had received tiny dose of haldol (0.5 mg) unclear what effect that might have had. would prefer she take seroquel 12.5 mg for anxiety/agitation po.
--- NOTE | 2025-01-21 13:44 | CM ---
Patient seen at bedside with sister
IA completed
Left message with son Aroldo
CARRENO form explained & signed. In chart
Lives alone at [facility]
PLOF: Independent with walker
DME: Walker
states she has a caregiver 2xwk for 3-4hrs who takes her shopping and nails
states her son comes and fills her pillbox for the month
has had home PT in past unable to recall agency, denies rehab
PT eval-no needs
PCP: Rochelle Jamison
Pharmacy: [facility], [address], [place]
PLAN: Home, no needs anticipated
sister to transport
--- NOTE | 2025-01-21 14:22 | W.PN.HOSP.TC ---
Today's Communication/Plan
-
Increased Synthroid 88mg OD
Check blood pressure
Continue to monitor
Assessment / Plan
Assessment / Plan
Patient is an 84 y.o female past medical history of Non obstructive CAD, Paroxysmal Atrial fibrillation, Essential HPN, Hypercholesterolemia, COPD, Hypothyroidism, Subarachnoid Hemorrhage secondary to cerebral aneurysm s/p stent, Dementia and
Anxiety/Panic Disorder who presents with jaw pain and shortness of breath.��
#Jaw Pain/Tachypnea
CVA vs Cardiac vs Dental vs joint pain vs Psychosomatic pain
ESR 21 slightly elevated
troponin normal
C reactive normal
Head CT-�no acute intracranial abnormality identified.
-Continue sertraline
-Haldol PRN
-psych following
#Hypothyroidism
-elevated TSH 9.91
-asymptomatic
-increased Levothyroxine 88mcg OD PO
#Uncontrolled Hypertension
-SPB was in 200's--possibly secondary to panic attack
-Currently in the 140's-150's range
-Losartan 100mg OD, Amlodipine 2.5 OD, Furosemide 20mg
#Non-Obstructive Coronary Artery Disease
-Continue aspirin
-Continue atorvastatin
#Dementia with Behavioral Disturbance
-Continue donepezil
DVT Proph: SCDs
Code Status: Limited DNR
Anticipated Discharge: Within 24 hours
Subjective/Interval History
-
Date of Service: January 21, 2025
The patient reports that her jaw pain is feeling better and the pain is minimal. She denies weakness, headache, and shortness of breath. She says that she would rather follow-up with PCP for jaw pain and would prefer to go home as soon as possible/
Objective Data
-
Vital Signs:
Vital Signs
Temp Pulse Resp BP Pulse Ox
98.1 F 74 16 147/78 96
01/21/25 07:17 01/21/25 11:01 01/21/25 11:01 01/21/25 11:01 01/21/25 11:01
I&O
01/20/25 01/21/25 01/22/25
06:59 06:59 06:59
Intake Total 480 / 480
Balance 480 / 480
Review of Systems
-
Constitutional: Denies Fever, Fatigue, Chills or Weakness
EENT: Reports Hearing Loss (Chronic) and Other (Minimal right jaw pain, Right eye anopsia, miotic pupils bilaterally); Denies Eye Pain
Respiratory: Reports No Symptoms
Cardiac: Reports No Symptoms
Abdomen/GI: Reports No Symptoms
Genitourinary: Reports No Symptoms
Musculoskeletal: Denies Edema
Neuro: Reports No Symptoms
Endocrine: Denies Temp Intolerance
Hematologic / Lymphatic: Denies Bleeding
Physical Exam
-
General: No Apparent Distress, Comfortable and Conversant
HEENT: Normocephalic, Anicteric, Hearing Impaired and Other (Oral- Poor dentition, moist oral mucosa, no lesions, oropharynx clear with no erythema or exudates, (-) jaw tenderness. Eyes- right eye anopsia, bilateral miotic pupils)
Respiratory: Clear to Auscultation
Cardiac: Regular Rhythm and S1/S2
GI: Soft, Nontender and Nondistended
Musculoskeletal: No Clubbing, No Cyanosis and No Edema
Skin: Warm
Neuro: AO x 3; Negative Tremors or Facial Droop
Psych: Calm
[2025-01-21 15:09] VITALS: BP 131/62
--- NOTE | 2025-01-21 19:43 | W.DCSUMMARY ---
Discharge Summary
Discharge Data
Date of Admission: 01/20/25
Date of Discharge: 01/21/25
-
Pending Results: No
Hospital Course
Discharging Physician : Sai Mar MD, Sara Swanson MD
Disposition : Home
Primary care physician :
Principal Discharge diagnosis : Jaw pain, Shortness of breath
Chronic Discharge diagnosis : Uncontrolled hypertension, Coronary artery disease, Hypothyroidism, Dementia with behavioral disturbances
Hospital Course :
84-year-old female past medical history of cerebral aneurysm status post stent, subarachnoid hemorrhage, CAD, hypertension, hyperlipidemia, dementia with behavioral disturbances, anxiety/panic attacks, hypothyroidism, GERD, presenting with one day
duration of jaw pain and difficulty breathing.
At the ER, Patient was noted to be short of breath with altered mental status. �She was answering questions appropriately. �She was able to communicate but will intermittently complain of shortness of breath, and was distractible. Upon exam, her
shortness of breath appeared to be transmissible through her neck appear to be self-inflicted. Additionally, the patient is reportedly experiencing distress and has expressed a desire for the Lord to take her, suspicious for underlying psychiatric
concerns or a response to pain. She was also given IV Midazolam, Head CT showed no acute finding. Troponin was normal <0.012. CRP < 5. Salicylate and alcohol were negative. TSH elevated at 9.91 but free T4 was normal at 1.63.
The following problems were addressed during this hospitalization:
#Jaw Pain/Tachypnea
CVA vs Cardiac vs Dental vs joint pain vs Psychosomatic pain
ESR 21 slightly elevated
Troponin 3 sets negative. EKG without ischemia
C reactive normal
Head CT-�no acute intracranial abnormality identified.
-asymptomatic at day of discharge
-Seroquel 12.5 mg at bedtime started
-psych consulted
#Hypothyroidism
-Periodically misses doses with medication at home
-elevated TSH 9.91
-asymptomatic
-increased Levothyroxine 88mcg OD PO
#Uncontrolled Hypertension
-SPB was in 200's--possibly secondary to panic attack
-Patient was given hydralazine 10 mg
-Currently in the 140's-150's range
-Losartan 100mg OD, Amlodipine 2.5 OD, Furosemide 20mg
#Non-Obstructive Coronary Artery Disease
#Hyperlipidemia
-Continued aspirin
-Continued atorvastatin
#Dementia with Behavioral Disturbance
-Continued donepezil
- Continued sertraline
#GERD
- Continued PPI
At discharge day, the patient was insistent on leaving. Symptoms seem to have stabilized. Advised the patient's family to bring back patient for reemergence of symptoms.
Important imaging findings :
Head CT (12/21/2024):
FINDINGS:
As seen previously, there is mild bilaterally symmetric prominence of the ventricles and extra-axial CSF spaces representing volume loss. There is bilateral diffuse white matter hypodensity which is nonspecific, but most likely related to chronic
small vessel ischemic disease. There is no acute bleed, mass effect, or midline shift. Posterior fossa structures within normal limits. There is a small chronic infarct in the posterior left temporal lobe which is unchanged. Is also small chronic
infarct in the anterior left temporal lobe. This was also present previously. No acute loss of santillan-white differentiation is identified. Patient is post stenting of the intracranial left internal carotid artery. There is no skull fracture. There are
some chronic sclerotic changes of the mastoid on the right. Post previous sinus surgery with a right-sided christos bullosa.
IMPRESSION:
1. No acute intracranial abnormality identified.
2. Small chronic left temporal lobe infarcts as above.
3. Post stenting left intracranial internal carotid artery. Site
Chest X Ray (12/21/2024)
FINDINGS: Patient is slightly rotated to the right. Asymmetric opacity over the paramediastinal right upper lung is unchanged from the previous examination and is related to tortuous brachiocephalic artery with calcific atherosclerotic change as
seen on the previous CT angiogram. There are some minimal subsegmental atelectatic changes at the right base. Blunting of the left costophrenic sulcus probably related to scarring. No clear effusion. No new consolidation. No pneumothorax. Apparent
prominence of right hilar region probably related to the rotation. Cardiomediastinal silhouette within normal limits. No acute osseous abnormality is seen. Post right shoulder replacement as seen previously. Degenerative changes of the spine with
dextroconvex curvature.
IMPRESSION: No acute pulmonary process identified.
Procedure findings :
ECG (01/21/2025)
Vent. Rate : 69 BPM Atrial Rate : 69 BPM
P-R Int : 202 ms QRS Dur : 104 ms
QT Int : 442 ms P-R-T Axes : -17 -48 114 degrees
QTcB Int : 473 ms
NORMAL SINUS RHYTHM
LEFT AXIS DEVIATION
MINIMAL VOLTAGE CRITERIA FOR LVH, MAY BE NORMAL VARIANT ( Allen product )
POSSIBLE ANTERIOR INFARCT (CITED ON OR BEFORE 08-Apr-2022)
ST and T WAVE ABNORMALITY, CONSIDER LATERAL ISCHEMIA
ABNORMAL ECG
WHEN COMPARED WITH ECG OF 20-Jan-2025 18:06,
QT HAS LENGTHENED
Discharge Plan
-
Patient Disposition: Home (Routine Discharge)
Discharge Diagnosis/Procedures: Jaw pain
Shortness of breath
Uncontrolled hypertension
Coronary artery disease
Hypothyroidism
Dementia with behavioral disturbances
Condition: Good
Diet: Low Cholesterol
Activity: As tolerated
Driving Restrictions: Not until seen by your Dr
Bathing Restrictions: None
Blood Work: thyroid function tests in 6 weeks
Activity Restrictions/Additional Instructions:
Follow-up with your neurologist as outpatient
Referrals:
Ashvin Jamison MD [Active, Internal Medicine] - in less than 1 week
UNKNOWN - PT NOT,INTERVIEWE [Family Provider]
Additional Discharge Medication Instructions: Put 75 mcg thyroid medicine aside. You have a new prescription now for 88 mcg. Please recheck TSH in 6-8 weeks with PCP.
Prescriptions:
New
levothyroxine 88 mcg Tablet
88 mcg PO DAILY @ 0600 Qty: 30 0RF
quetiapine [Seroquel] 25 mg tablet
12.5 mg PO HS Qty: 30 0RF
Continued
telmisartan 80 mg tablet
80 mg PO DAILY
furosemide 20 mg tablet
20 mg PO DAILY
[place]-3 Fish Oil 300-1,000 mg Capsule
1 cap PO DAILY
donepezil 10 mg Tablet
10 mg PO HS
aspirin 81 mg Tablet,Delayed Release (Dr/Ec)
81 mg PO DAILY
sertraline 50 mg Tablet
50 mg PO DAILY
pantoprazole [Protonix] 40 mg Tablet,Delayed Release (Dr/Ec)
40 mg PO DAILY
atorvastatin 80 mg tablet
80 mg PO HS
amlodipine [Norvasc] 2.5 mg tablet
2.5 mg PO DAILY
Discontinued
levothyroxine 75 mcg Tablet
75 mcg PO DAILY
Discharge Orders:
Discharge Patient (As Directed); Ordered 01/21/25
Ordered By: Sara Swanson
Discharge Date and Time
Discharge Date/Time: 01/21/25 17:05
Print Language: TURKMEN
== END 2025-01-21 17:05 | disposition home or self-care (01) ==
LOC: 3 WEST ACU 15:06
PROVIDERS: Physician Assistant Medical; ADMITTING PHYSICIAN Hospitalist; ATTENDING PHYSICIAN Hospitalist; CONSULT PHYSICIAN Psychiatry & Neurology Psychiatry; EMERGENCY PHYSICIAN Student in an Organized Health Care Education/Training Program
DX: R68.84 Jaw pain (principal); R06.02 Shortness of breath; R06.82 Tachypnea, not elsewhere classified; I25.10 Atherosclerotic heart disease of native coronary artery without angina pectoris; I10 Essential (primary) hypertension; I48.0 Paroxysmal atrial fibrillation; F03.B4 Unspecified dementia, moderate, with anxiety; E03.9 Hypothyroidism, unspecified; Z79.899 Other long term (current) drug therapy; K21.9 Gastro-esophageal reflux disease without esophagitis
CPT/HCPCS: 70450; 71045; 80053; 80143; 80179; 82077; 82962; 84439; 84443; 84484; 85025; 85652; 86140; 93005; 96374; 97162; 99285; G0378

== ENCOUNTER → 2025-04-04 12:11 | Outpatient (REF) | payer MEDICARE, OTHER, SELFPAY ==
[2025-04-04 13:27] LABS: Hematocrit 39.4 % (37.0-47.0); Hemoglobin 12.6 g/dL (12.0-16.0); Mean Corp Hgb Conc. 32.0 g/dL (33.0-37.0); Mean Corpuscular Volume 94.9 fL (81.0-99.0); Nucleated Red Blood Cells % 0 %; Platelet Count 175 10^3/uL (130-400); Red Cell Dist. Width 13.6 % (11.5-14.5)
[2025-04-04 13:50] LABS: HDL Cholesterol 51 mg/dl; LDL Cholesterol, Calculated 75 mg/dl; Very Low Density Lipoprotein 29 mg/dl (0-30)
[2025-04-04 14:07] LABS: Vitamin D, 25-OH*** 70.7 ng/mL (30-80)
[2025-04-04 14:20] LABS: TSH 5.62 uIU/ml (0.47-4.68)
== END ==
LOC: REG 12:11
PROVIDERS: ATTENDING PHYSICIAN Internal Medicine Geriatric Medicine
DX: I10 Essential (primary) hypertension (principal); I48.0 Paroxysmal atrial fibrillation; E03.9 Hypothyroidism, unspecified; E78.2 Mixed hyperlipidemia; I25.10 Atherosclerotic heart disease of native coronary artery without angina pectoris; I35.1 Nonrheumatic aortic (valve) insufficiency; F03.A0 Unspecified dementia, mild, without behavioral disturbance, psychotic disturbance, mood disturbance, and anxiety; F41.9 Anxiety disorder, unspecified; K21.9 Gastro-esophageal reflux disease without esophagitis; M54.50 Low back pain, unspecified; R53.83 Other fatigue; Z91.81 History of falling; Z79.899 Other long term (current) drug therapy
CPT/HCPCS: 36415; 80061; 82306; 84439; 84443; 85025